=== PATIENT | female | born 1975 | race Caucasian/White ===

== ENCOUNTER 2016-12-18 11:30 | Inpatient (IN) | payer MEDICAID ==
[~2016-12-18] VITALS: Ht 162.6 cm; Wt 81.0 kg
[2017-04-02] VITALS (17 sets, daily range): BP systolic 112–138; BP diastolic 0–77; PULSE 68–92; RESP 16–26; Ht 162.6 cm; Wt 81.0 kg
[2017-04-02] MEDS ORDERED: LACTATED RINGER'S 1,000 ML IV SCH (14:00)
[2017-04-02] MEDS ORDERED: CEFAZOLIN 2 GM/50 ML (PMX) 50 ML IVPB ONE (14:00)
[2017-04-02] MEDS ORDERED: metroNIDAZOLE 500 MG/NS (PMX) 100 ML IVPB ONE (14:00)
[2017-04-02] MEDS ORDERED: FENTAnyl 50 MCG/ML VIAL IV PRN ×3 (15:00)
[2017-04-02] MEDS ORDERED: DIPHENHYDRAMINE 50 MG INJ IV PRN (15:00)
[2017-04-02] MEDS ORDERED: PROPOFOL 100 ML ONE (15:00)
[2017-04-02] MEDS ORDERED: MEPERIDINE 25 MG INJ IV PRN (15:00)
[2017-04-02] MEDS ORDERED: hydrALAzine 20 MG INJ IV PRN (15:00)
[2017-04-02] MEDS ORDERED: HYDROmorphONE (0.2 MG/ML) 10ML SYG IV PRN ×2 (15:00)
[2017-04-02] MEDS ORDERED: OXYCODONE/ACETAMINOPHEN (5/325) TAB PO PRN ×2 (15:00)
[2017-04-02] MEDS ORDERED: EPHEDrine SULFATE 50 MG/5 ML SYG IV PRN (15:00)
[2017-04-02] MEDS ORDERED: LABETALOL HCL 20MG INJ IV PRN (15:00)
[2017-04-02] MEDS ORDERED: ONDANSETRON 4 MG INJ IV PRN ×2 (15:00→19:30)
[2017-04-02] MEDS ORDERED: LIDOCAINE 2% (SDV) 5 ML INJ ONE (15:01)
[2017-04-02] MEDS ORDERED: ROCURONIUM 50 MG INJ ONE ×2 (15:02→17:09)
[2017-04-02] MEDS ORDERED: BUPIVACAINE 0.25%/EPI (SDV) 10 ML INJ ONE (15:02)
[2017-04-02] MEDS ORDERED: LIDOCAINE 1% (STERILE-PAK) 30 ML INJ ONE (15:02)
--- NOTE | 2017-04-02 15:11 | HPN ---
Date/Time of Note Date/Time of Note DATE: 04/02/17 TIME: 15:10 Interval H&P Admission Note Pt. seen H&P reviewed: No system changes COLONOSCOPY NOTED. ESPERANZA SORIANO MD Apr 02, 2017 15:11
[2017-04-02] MEDS ORDERED: LABETALOL HCL 20MG INJ ONE (15:49)
[2017-04-02] MEDS ORDERED: LIDOCAINE 1% (MPF) 10 ML INJ ONE (16:08)
[2017-04-02] MEDS ORDERED: ONDANSETRON 4 MG INJ ONE (18:40)
[2017-04-02] MEDS ORDERED: DEXAMETHASONE 4 MG/ML 1 ML INJ ONE (18:40)
[2017-04-02] MEDS ORDERED: GLYCOPYRROLATE 1 MG INJ ONE (19:01)
[2017-04-02] MEDS ORDERED: NEOSTIGMINE 3 MG/3 ML SYRINGE ONE (19:01)
[2017-04-02] MEDS ORDERED: KETOROLAC 30 MG INJ ONE (19:03)
[2017-04-02] MEDS: HYDROmorphONE (0.2 MG/ML) 10ML SYG IV PRN ×3 (19:26→20:03)
[2017-04-02] MEDS ORDERED: HYDROCODONE/APAP (5/325) TAB PO PRN (19:30)
[2017-04-02] MEDS ORDERED: CEFTRIAXONE 1 GM/50 ML (PMX) 50 ML IVPB SCH (20:00)
--- NOTE | 2017-04-02 20:07 | OPR ---
Date/Time of Note Date/Time of Note DATE: 04/02/17 TIME: 19:56 Operative Report Procedure Date: Apr 02, 2017 Anesthesia: general Procedure Description Preoperative Diagnosis: 1. Colostomy state 2. History of obstructing sigmoid 10 cm colon cancer with positive lymph nodes 3. BMI 31 Postoperative Diagnosis: 1. Colostomy state 2. History of obstructing sigmoid 10 cm colon cancer with positive lymph nodes 3. BMI 31 4. Left ovarian cystic lesion (probable corpus luteum at 5 cm) Operation Performed: 1. Laparoscopic colostomy reversal/takedown 2. Laparoscopic splenic mobilization 3. Laparoscopic low colo-distal rectal anastomosis 4. Laparoscopic partial left colectomy 5. Rigid sigmoidoscopy 6. Implantation of biologic over anastomosis to improve healing and decrease adhesions 7. Local anesthetic [place], [id number] 8. Laparoscopic bilateral transversus abdominis plane block Surgeon: ESPERANZA SORIANO MD Systems Test Analyst: Kajal Rabago NP Anesthesia: general + local + regional Anesthesiologist: Tristen Singh MD Estimated Blood Loss: 25 ml's Specimens: 1. Anastomotic rings 2. Distal colon/colostomy edge 3. Left ovarian cystic lesion wall Tubes/Drains: Quarter inch Crapo Complications: None Pt Condition Post Procedure: stable Disposition: PACU Indications 41-year-old female with history of 10 cm obstructing sigmoid cancer with positive lymph nodes requiring colostomy in December 2016. She is undergone treatments for her adenocarcinoma and had colonoscopy and rigid sigmoidoscopy by Dr Evans without any abnormal findings about a month ago. Patient is now here for colostomy reversal. Risks include but are not limited to bleeding, infection, abscess, seroma, leak , damage to intestines or any intra-abdominal/intrapelvic structures, hernia formation, chronic pain, need for re-operations or further surgeries, [place], stroke , PE, DVT, pneumonia, organ failures, or even . Procedure Description: Patient was brought into the operating room, placed supine on the operating table, SCDs were placed, right arm was tucked, all pressure points were well- padded, preoperative antibiotics administered, and after induction of anesthesia , patient was placed in the lithotomy. Espinal was inserted. Patient was then prepped and draped in usual sterile fashion, and timeout was performed. Incision was made in the right upper quadrant, and using an Optiview port and 5 mm 0 scope abdomen was safely entered and insufflated to 15 mmHg with CO2. Laparoscopy was performed and no injuries were identified. Under direct visualization another 5 mm port was placed in the right lower quadrant a 12 mm port was placed in the right lower lateral quadrant. Patient was placed in Trendelenburg and left side up. Pelvis was investigated. There was a left ovarian cystic lesion that was adherent to the rectal stump. The lesion was about 5 cm and chocolate type. Manipulation of this perforated the lesion and old blood was leaked out and suctioned out. Gynecological consultation by Dr. Lobato was obtained and he does not believe this to be concerning lesion. He does not recommend removing the lesion. There was complete hemostasis at this point and lesion was not bleeding. I decided to perform biopsy of the wall of the cyst to rule out any malignancy. Intraoperative consultation from pathology negated possibilities of malignancy. The lesion open cuadra were cauterized to maintain hemostasis. Rigid sigmoidoscopy was performed and the rectal stump was found to be short. There was few stool hard balls there which were removed manually. The vaginal cuff and the bladder were easily off of the rectal stump. The rectal stump did not feel thickened. The colostomy edge was cut away from the skin using electrocautery and with gentle dissection the distal colon was from the subcutaneous tissue and then the fascia and peritoneum circumferentially preserving the entire colon. Hemostasis was obtained. Automatic pursestring suture device was used on the healthy distal colon and then unhealthy distal colon was transected and sent to pathology. EEA 29 anvil was placed into the distal colon and secured with the previously placed pursestring suture. Care was taken to put back the EEA anvil and the distal colon back into the abdomen under direct visualization. Louis GelPort was applied at the site to preserve insufflation. At this point the proximal colon was not sufficiently reaching the rectal stump in the pelvis to allow tension free anastomosis. Decision was made to proceed with splenic mobilization. Using sharp dissection and energy device I was able to mobilize the proximal descending colon further from the abdominal wall and the spleen. The omentum was taken off the splenic flexure and the splenic flexure was further mobilized inferiorly. After full mobilization of the splenic flexure we were able to obtain sufficient length for the anastomosis without any tension. EEA stapler was placed through the rectum into the rectal stump under direct visualization. The needle was opened through the rectal stump and the anvil was attached to the needle and full circular stapled anastomosis was created. After removal of the EEA full doughnuts 2 were identified. Proximal colon was clamped and using a rigid sigmoidoscope and air was insufflated into the rectum with distention of the anastomotic site under saline in the pelvis without any air bubbles leaking. Rigid sigmoidoscopy was performed up to 15 cm with healthy stapled anastomosis without any active bleeding. Fluid was suctioned out. To reinforce the stapled anastomosis, improve healing, and decrease adhesions, 10 x 15 cm 3 layer ACell, xenograft biologic tissue, was implanted on top of the anastomosis in the pelvis. Small bowel was ran from terminal ileum to augment of Treitz without any twisting or further scarring. The bowel was laid flat in the abdomen and pelvis. 12 m port site fascia was closed with Endo Close and 0 Vicryl in a figure-of- eight manner. There was complete hemostasis. Ports and CO2 were removed under direct visualization. Wounds were thoroughly irrigated and skin was closed with 4-0 Monocryl subcuticular fashion. Dermabond was applied. The colostomy site wound was closed in multiple layers. Initially the peritoneum was closed with 2-0 Vicryl in a running fashion. Fascial defect was closed with interrupted #1 Vicryls in a [id number] manner. Subcutaneous tissue was closed in multiple layers with interrupted 2-0 Vicryl suture. There was irrigation with saline and Betadine between each closing layer. Quarter inch Gonzalo drain was placed above the fascia and below the subcutaneous tissue and the edges secured to the skin surface using 2-0 nylon. Skin was closed loosely with 2-0 nylon and then 4 x 4 and tape were applied to the surface of this wound. All counts were correct and the end of the operation 2. Patient was extubated and transferred to recovery room in stable condition. ESPERANZA SORIANO MD Apr 02, 2017 20:07
[2017-04-02] MEDS: D5W-0.45 NACL + KCL 20 MEQ 1,000 ML IV SCH (21:31)
[2017-04-02] MEDS: metroNIDAZOLE 500 MG/NS (PMX) 100 ML IVPB SCH (21:32)
[2017-04-02] MEDS: HYDROmorphONE 1 MG/ML SYG IV PRN (21:34)
[2017-04-03 02:24] VITALS: BP 113/62; PULSE 97; RESP 18
[2017-04-03] MEDS: HYDROmorphONE 1 MG/ML SYG IV PRN ×2 (02:29→05:56)
[2017-04-03] MEDS: metroNIDAZOLE 500 MG/NS (PMX) 100 ML IVPB SCH ×2 (03:23→11:45)
[2017-04-03 05:37] LABS: ABNORMAL IP MESSAGE 1; BASOPHILS % 0.1 % (0.0-2.0); HEMATOCRIT 34.8 % (37.0-47.0); HEMOGLOBIN 11.8 g/dl (12.0-16.0); LYMPHOCYTES # 0.6 10^3/ul (0.8-2.9); LYMPHOCYTES % 3.7 % (15.0-51.0); MEAN CORPUSCULAR HEMOGLOBIN 29.9 pg (29.0-33.0); MEAN CORPUSCULAR HGB CONC 33.9 g/dl (32.0-37.0); MEAN CORPUSCULAR VOLUME 88.3 fl (82.0-101.0); MEAN PLATELET VOLUME 9.5 fl (7.4-10.4); MONOCYTE # 0.4 10^3/ul (0.3-0.9); MONOCYTES % 2.9 % (0.0-11.0); NEUTROPHIL # 13.9 10^3/ul (1.6-7.5); NEUTROPHILS % 92.8 % (39.0-77.0); PLATELET COUNT 241 10^3/UL (140-415); RED BLOOD COUNT 3.94 10^6/ul (4.20-5.40); RED CELL DISTRIBUTION WIDTH 12.9 % (11.5-14.5); WHITE BLOOD COUNT 14.9 10^3/ul (4.8-10.8)
[2017-04-03 05:46] LABS: CALCIUM 7.9 mg/dl (8.4-10.2); CREATININE 0.64 mg/dl (0.44-1.00); POSITIVE DIFF @See below
[2017-04-03 06:10] LABS: IRON 35 ug/dl (35-150)
[2017-04-03] MEDS: PANTOPRAZOLE (EC) 40 MG TAB PO SCH (06:10)
[2017-04-03] MEDS: ENOXAPARIN 40 MG/0.4 ML SYG SC SCH (06:19)
[2017-04-03 06:20] LABS: TOTAL IRON BINDING CAPACITY 269 ug/dl (241-421)
--- NOTE | 2017-04-03 07:21 | HP ---
Date/Time of Note Date/Time of Note DATE: 04/03/17 TIME: 07:10 Assessment/Plan Lines/Catheters IV Catheter Type (from [facility]): Peripheral IV Urinary Cath still in place: Yes Assessment/Plan Assessment/Plan Assessment Patient is a 41-year-old female with history of obstructing sigmoid colon cancer s/p removal with colostomy state for over a year now admitted and underwent operations which included laparoscopic colostomy reversal/takedown. Plan Continue pain management. Follow-up surgery recommendations. We will check iron profile and ferritin to see if she has iron deficiency anemia. HPI/ROS Admit Date/Time Admit Date/Time Apr 02, 2017 at 13:26 Hx of Present Illness This is a 41-year-old female with a history of obstructing sigmoid 10 cm colon cancer with positive lymph nodes who in January of 2016 underwent surgical procedure to have that mass removed which included a laparoscopic sigmoid colectomy, laparoscopic colectomy with Eden's pouch, laparoscopic-guided transverse abdominis plane block. Patient now admitted to the hospital and underwent the following operations by Dr. Edgar Mc. Patient currently stated that her pain is 5 out of 10 in intensity. She wants to continue the current pain regimen because she has been feeling slightly confused when taking the pain medications. She denied any chest pain, shortness of breath, fever, chills, nausea or vomiting. Operation Performed: 1. Laparoscopic colostomy reversal/takedown 2. Laparoscopic splenic mobilization 3. Laparoscopic low colo-distal rectal anastomosis 4. Laparoscopic partial left colectomy 5. Rigid sigmoidoscopy 6. Implantation of biologic over anastomosis to improve healing and decrease adhesions 7. Local anesthetic injection, [id number] 8. Laparoscopic bilateral transversus abdominis plane block PMH/Family/Social Social History Smoking Status: Never smoker Exam/Review of Systems Vital Signs Vitals Vital Signs Date Time Temp Pulse Resp B/P Pulse Ox O2 Delivery O2 Flow Rate FiO2 04/03/17 02:24 98.2 97 18 113/62 96 Room Air Intake and Output 04/02/17 04/02/17 04/03/17 15:00 23:00 07:00 Intake Total 2100 ml 830 ml Output Total 476 ml 900 ml Balance 1624 ml -70 ml Exam Constitutional: alert, oriented, well developed Head: atraumatic, normocephalic Eyes: EOMI, PERRL Respiratory: clear to auscultation, normal air movement Cardiovascular: nl pulses, regular rate and rhythm Gastrointestinal: other (There is a swollen area on the left side of her abdomen where her colostomy used to be.), soft, surgical scars, tender Extremities: normal pulses Labs Result Diagram: 04/03/1742304/03/174 Medications Medications Current Medications Metronidazole (Flagyl 500 Mg (Pmx)) 100 ml @ 100 mls/hr Q8H IVPB Last administered on 04/03/17 03:23; Admin Dose 100 MLS/HR; Start 04/02/17 at 19:30; Stop 04/03/17 at 19:29 Ondansetron HCl (Zofran Inj) 4 mg Q6H PRN IV NAUSEA AND/OR VOMITING; Start 04/02 at 19:30 Pantoprazole 40 mg 40 mg DAILY@06 PO Last administered on 04/03/17 06:10; Admin Dose 40 MG; Start 04/03/17 at 06:00 Potassium Chloride/Dextrose/ Sod Cl (D5-1/2ns + KCl 20 Meq) 1,000 ml @ 80 mls/ hr [id number] IV Last administered on 04/02/17 21:31; Admin Dose 80 MLS/HR; Start 04/02/17 at 19:29 Enoxaparin Sodium (Lovenox) 40 mg DAILY@07 SC Last administered on 04/03/17 06: 19; Admin Dose 40 MG; Start 04/03/17 at 07:00 Acetaminophen/ Hydrocodone Bitart ([place] (5/325)) 2 tab Q4H PRN PO Pain 6-10; Start 04/02/17 at 19:30 Acetaminophen/ Hydrocodone Bitart ([place] (5/325)) 1 tab Q4H PRN PO Pain 1-5; Start 04/02/17 at 19:30 Hydromorphone HCl (Dilaudid) 0.5 mg Q2H PRN IV Breakthrough PAIN Last administered on 04/03/17 05:56; Admin Dose 0.5 MG; Start 04/02/17 at 19:30 CURLY LEWIS MD Apr 03, 2017 07:20
[2017-04-03] MEDS: D5W-0.45 NACL + KCL 20 MEQ 1,000 ML IV SCH ×2 (07:59→13:42)
[2017-04-03 08:06] VITALS: BP 106/58; RESP 20
[2017-04-03 09:45] LABS: ADD UMIC NO; UR ASCORBIC ACID NEGATIVE (NEGATIVE); UR BILIRUBIN (Dip) NEGATIVE (NEGATIVE); UR BLOOD (Dip) NEGATIVE (NEGATIVE); UR CLARITY CLEAR (CLEAR); UR COLOR YELLOW (YELLOW); UR GLUCOSE (Dip) 1+ mg/dL (NEGATIVE); UR KETONES (Dip) NEGATIVE (NEGATIVE); UR LEUKOCYTE ESTERASE (Dip) NEGATIVE Leu/ul (NEGATIVE); UR NITRITE (Dip) NEGATIVE (NEGATIVE); UR SPECIFIC GRAVITY (Dip) 1.023 (1.003-1.030); UR TOTAL PROTEIN (Dip) NEGATIVE (NEGATIVE); UR UROBILINOGEN (Dip) NEGATIVE (NEGATIVE)
[2017-04-03] MEDS: HYDROCODONE/APAP (5/325) TAB PO PRN ×2 (11:43→17:07)
[2017-04-03 11:53] VITALS: BP 104/59; PULSE 100; RESP 20
[2017-04-03 13:25] LABS: HEMATOCRIT 32.3 % (37.0-47.0); HEMOGLOBIN 10.8 g/dl (12.0-16.0)
[2017-04-03 14:00] VITALS: BP 111/51; RESP 18
[2017-04-03 18:01] LABS: HEMATOCRIT 29.4 % (37.0-47.0); HEMOGLOBIN 10.1 g/dl (12.0-16.0)
[2017-04-03 19:31] VITALS: BP 113/59; RESP 22
--- NOTE | 2017-04-03 21:38 | QN ---
Documentation Comment April I was called for an intraoperative consult This is a patient with history of sigmoid colon cancer with positive lymph node who previously had partial resection of sigmoid colon and anastomosis,was now having colo-rectal anastomosis and other palliative procedures. On laparoscopic observation the R ovary was lacerated and apparently a corpus luteum cyst was ruptured .No other concerning gynecological finding at this short laparoscopic viewing. A biopsy of this ovary was sent for frozen section ,no malignancy found. Operation Performed: by Dr: Alexandro: 1. Laparoscopic colostomy reversal/takedown 2. Laparoscopic splenic mobilization 3. Laparoscopic low colo-distal rectal anastomosis 4. Laparoscopic partial left colectomy 5. Rigid sigmoidoscopy 6. Implantation of biologic over anastomosis to improve healing and decrease adhesions 7. Local anesthetic injection, [id number] 8. Laparoscopic bilateral transversus abdominis plane block Mohinder Suarez HESHMAT MD Apr 03, 2017 21:38
--- NOTE | 2017-04-03 23:14 | PN ---
Date/Time of Note Date/Time of Note DATE: 04/03/17 TIME: 22:51 Assessment/Plan Lines/Catheters IV Catheter Type (from [facility]): Peripheral IV Espinal in Place (from [facility]): No Assessment/Plan Chief Complaint/Hosp Course 1. Colostomy state s/p colostomy reversal/takedown 04/02/17; +flatus -full liquids -advance as tolerated with bowel function -ambulate -IS 2. Normocytic anemia: no acute bleed noted; ?dilutional -monitor, frequent H/h 3. Leukocytosis with tachycardia: reactive vs. infective; afebrile -monitor 4. Abdominal pain: 10/04 #1 -ice pack -analgesics 5. Obesity: BMI 31 -weight and nutrition optimization Patient seen and examined in collaboration with Dr. Edgar Mc. Thank you. Problems: Subjective 24 Hr Interval Summary Feeling well. + flatus, no bm. Tolerating diet. incision site without bleeding or drainage. Min abdominal tenderness. No c/o pain, n/v/d, fevers, chills, sob, cough. Exam/Review of Systems Vital Signs Vitals Vital Signs Date Time Temp Pulse Resp B/P Pulse Ox O2 Delivery O2 Flow Rate FiO2 04/03/17 19:31 98.5 110 22 113/59 100 04/03/17 11:53 Room Air Intake and Output 04/02/17 04/02/17 04/03/17 15:00 23:00 07:00 Intake Total 2100 ml 830 ml Output Total 476 ml 900 ml Balance 1624 ml -70 ml Exam Constitutional: alert, oriented Psych: nl mood/affect Head: atraumatic, normocephalic Eyes: nl conjunctiva ENMT: mucosa pink and moist Neck: non-tender, supple Respiratory: normal air movement Cardiovascular: regular rate and rhythm Gastrointestinal: distended (min), other (previous ostomy site dry without erythema with sutures ; + ananth drain), soft, tender Genitourinary - Female: No CVA tenderness Musculoskeletal: nl extremities to inspection Extremities: normal pulses Neurological: nl mental status, nl speech Skin: nl turgor, No diaphoresis Results Result Diagram: 04/03/17 1753 04/03/17 0424 ALFREDO DIAMOND NP Apr 03, 2017 23:09
[2017-04-04] MEDS: HYDROCODONE/APAP (5/325) TAB PO PRN ×2 (02:06→10:33)
[2017-04-04] MEDS: D5W-0.45 NACL + KCL 20 MEQ 1,000 ML IV SCH (02:07)
[2017-04-04 03:18] VITALS: BP 109/59; RESP 20
[2017-04-04 05:32] LABS: BASOPHILS % 0.2 % (0.0-2.0); EOSINOPHILS % 0.2 % (0.0-7.0); HEMATOCRIT 28.3 % (37.0-47.0); HEMOGLOBIN 9.3 g/dl (12.0-16.0); LYMPHOCYTES # 0.9 10^3/ul (0.8-2.9); MEAN CORPUSCULAR HEMOGLOBIN 29.4 pg (29.0-33.0); MEAN CORPUSCULAR HGB CONC 32.9 g/dl (32.0-37.0); MEAN CORPUSCULAR VOLUME 89.6 fl (82.0-101.0); MEAN PLATELET VOLUME 9.5 fl (7.4-10.4); MONOCYTE # 0.3 10^3/ul (0.3-0.9); MONOCYTES % 3.4 % (0.0-11.0); NEUTROPHIL # 8.6 10^3/ul (1.6-7.5); NEUTROPHILS % 86.6 % (39.0-77.0); PLATELET COUNT 198 10^3/UL (140-415); RED BLOOD COUNT 3.16 10^6/ul (4.20-5.40); RED CELL DISTRIBUTION WIDTH 13.5 % (11.5-14.5); WHITE BLOOD COUNT 9.9 10^3/ul (4.8-10.8)
[2017-04-04 05:48] LABS: MAGNESIUM 1.7 mg/dl (1.7-2.5); PHOSPHORUS 2.2 mg/dl (2.5-4.9)
[2017-04-04] MEDS: PANTOPRAZOLE (EC) 40 MG TAB PO SCH (05:56)
[2017-04-04] MEDS: ENOXAPARIN 40 MG/0.4 ML SYG SC SCH (06:05)
[2017-04-04 06:48] LABS: ALBUMIN 2.8 g/dl (3.3-4.9); BILIRUBIN,INDIRECT 0.2 mg/dl (0-1.1); BILIRUBIN,TOTAL 0.2 mg/dl (0.2-1.3); CALCIUM 7.8 mg/dl (8.4-10.2); CREATININE 0.61 mg/dl (0.44-1.00); POTASSIUM 3.8 mmol/L (3.5-5.1); TOTAL PROTEIN 5.6 g/dl (6.1-8.1)
[2017-04-04 08:24] VITALS: BP 117/68; RESP 16
--- NOTE | 2017-04-04 09:29 | PN ---
Date/Time of Note Date/Time of Note DATE: 04/04/17 TIME: 09:14 Assessment/Plan Lines/Catheters IV Catheter Type (from [facility]): Peripheral IV Espinal in Place (from [facility]): No Assessment/Plan Chief Complaint/Hosp Course 1. Colostomy state s/p colostomy reversal/takedown 04/02/17; +flatus; tolerating full liquids -advance as tolerated with bowel function -ambulate -IS 2. Normocytic anemia: no acute bleed noted; ?dilutional -monitor -frequent H/h 3. Leukocytosis: normalized afebrile -monitor 4. Abdominal pain: 2 #1 -ice pack -analgesics 5. Obesity: BMI 31 -weight and nutrition optimization 6. Tachycardia: ?22 #4 vs. bleed -monitor -as above Patient seen and examined in collaboration with Dr. Edgar Mc. Thank you. Problems: Subjective 24 Hr Interval Summary Feels well. +flatus/no bm. tolerating full liquids. ambulating without difficulty. tachycardia. No fevers, chills, n/v/d, dysuria. Exam/Review of Systems Vital Signs Vitals Vital Signs Date Time Temp Pulse Resp B/P Pulse Ox O2 Delivery O2 Flow Rate FiO2 04/04/17 08:24 98.8 109 16 117/68 96 04/03/17 11:53 Room Air Intake and Output 04/03/17 04/03/17 04/04/17 15:00 23:00 07:00 Intake Total 580 ml 1360 ml 1750 ml Output Total 700 ml 1110 ml Balance 580 ml 660 ml 640 ml Exam Free Text/Dictation Constitutional: alert, oriented Psych: nl mood/affect Head: atraumatic, normocephalic Eyes: nl conjunctiva ENMT: mucosa pink and moist Neck: non-tender, supple Respiratory: normal air movement Cardiovascular: regular rate and rhythm Gastrointestinal: distended (min), other (previous ostomy site closed with sutures without erythema; + ananth drain), soft, tender Genitourinary - Female: No CVA tenderness Musculoskeletal: nl extremities to inspection Extremities: normal pulses Neurological: nl mental status, nl speech Skin: nl turgor, No diaphoresis Results Result Diagram: 04/04/17 0437 04/04/17 0437 ALFREDO DIAMOND NP Apr 04, 2017 09:25
[2017-04-04 11:39] LABS: HEMATOCRIT 30.3 % (37.0-47.0); HEMOGLOBIN 10.3 g/dl (12.0-16.0)
[2017-04-04 15:05] VITALS: BP 118/68; RESP 16
[2017-04-04] MEDS: KETOROLAC 30 MG INJ IV SCH ×2 (15:06→20:20)
[2017-04-04 20:19] VITALS: BP 128/61; RESP 20
[2017-04-05] MEDS: KETOROLAC 30 MG INJ IV SCH ×3 (03:00→15:00)
[2017-04-05 03:26] VITALS: BP 120/73; RESP 20
[2017-04-05] MEDS: PANTOPRAZOLE (EC) 40 MG TAB PO SCH (06:35)
[2017-04-05] MEDS: ENOXAPARIN 40 MG/0.4 ML SYG SC SCH (06:42)
[2017-04-05 07:00] VITALS: BP 119/70; RESP 20
--- NOTE | 2017-04-05 11:59 | PN ---
Date/Time of Note Date/Time of Note DATE: 04/05/17 TIME: 11:54 Assessment/Plan Lines/Catheters IV Catheter Type (from [facility]): Saline Lock Espinal in Place (from [facility]): No Assessment/Plan Chief Complaint/Hosp Course 1. Colostomy state s/p colostomy reversal/takedown 04/02/17; +bowel function; pathology noted, tolerating full liquids -advance as tolerated with bowel function -ambulate -IS 2. Normocytic anemia: no acute bleed noted: h/h improved, stable -monitor 3. Leukocytosis: normalized 4. Abdominal pain: 2/2 #1; much improved -ice pack -analgesics 5. Obesity: BMI 31 -weight and nutrition optimization 6. Tachycardia: checked rate apically- hr 84 Patient seen and examined in collaboration with Dr. Edgar Mc. Thank you. Problems: Subjective 24 Hr Interval Summary + bowel function, soft brown stool x2. No bleeding noted. Tolerating diet. No fevers, chills, n/v/d, cp, palpitations. Tachycardia improved. Exam/Review of Systems Vital Signs Vitals Vital Signs Date Time Temp Pulse Resp B/P Pulse Ox O2 Delivery O2 Flow Rate FiO2 04/05/17 07:00 98.3 103 20 119/70 97 04/03/17 11:53 Room Air Intake and Output 04/04/17 04/04/17 04/05/17 15:00 23:00 07:00 Intake Total 200 ml 1340 ml 350 ml Output Total 1650 ml 800 ml Balance 200 ml -310 ml -450 ml Exam Free Text/Dictation Constitutional: alert, oriented Psych: nl mood/affect Head: atraumatic, normocephalic Eyes: nl conjunctiva ENMT: mucosa pink and moist Neck: non-tender, supple Respiratory: normal air movement Cardiovascular: regular rate and rhythm Gastrointestinal: distended (min), other (previous ostomy site dry without erythema with sutures ; + ananth drain, min serosanguineous drainage, no periwound erythema), soft, tender Genitourinary - Female: No CVA tenderness Musculoskeletal: nl extremities to inspection Extremities: normal pulses Neurological: nl mental status, nl speech Skin: nl turgor, No diaphoresis Results Result Diagram: 04/04/17 1116 04/04/17 0437 ALFREDO DIAMOND NP Apr 05, 2017 11:59
[2017-04-05 14:00] VITALS: BP 121/65; RESP 20
[2017-04-05 17:10] VITALS: PULSE 94
[2017-04-05 20:40] VITALS: BP 110/61; RESP 20
[2017-04-06 02:35] VITALS: BP 113/62; RESP 18
[2017-04-06] MEDS: ENOXAPARIN 40 MG/0.4 ML SYG SC SCH (07:00)
[2017-04-06] MEDS: PANTOPRAZOLE (EC) 40 MG TAB PO SCH (07:05)
[2017-04-06 08:02] VITALS: BP 115/66; RESP 19
--- NOTE | 2017-04-06 21:05 | DS ---
Date/Time of Note Date/Time of Note DATE: 04/06/17 TIME: 21:02 Discharge Summary Admission/Discharge Info Admit Date/Time Apr 02, 2017 at 13:26 Discharge Date/Time Apr 06, 2017 at 16:51 Discharge Diagnosis Colon ca hx Colostomy state s/p colostomy takedown Patient Condition: Good Procedures s/p lap colostomy takedown, biologic implantation, rigid sigmoidoscopy Hx of Present Illness This is a 41-year-old female with a history of obstructing sigmoid 10 cm colon cancer with positive lymph nodes who in January of 2016 underwent surgical procedure to have that mass removed which included a laparoscopic sigmoid colectomy, laparoscopic colectomy with Eden's pouch, laparoscopic-guided transverse abdominis plane block. She underwent reversal procedure and did well postoperatively. Bowel function returned and she is tolerating diet. Labs are normal. She is ambulatory and ready to go home. Operation Performed: 1. Laparoscopic colostomy reversal/takedown 2. Laparoscopic splenic mobilization 3. Laparoscopic low colo-distal rectal anastomosis 4. Laparoscopic partial left colectomy 5. Rigid sigmoidoscopy 6. Implantation of biologic over anastomosis to improve healing and decrease adhesions 7. Local anesthetic [place], [id number] 8. Laparoscopic bilateral transversus abdominis plane block Hospital Course 1. Colostomy state s/p colostomy reversal/takedown 04/02/17; +bowel function; pathology noted, tolerating diet -dc planning -ambulate -IS 2. Normocytic anemia: no acute bleed noted: h/h improved, stable 3. Leukocytosis: normalized 4. Abdominal pain: 2/2 #1; much improved -ice pack -analgesics 5. Obesity: BMI 31 -weight and nutrition optimization 6. Tachycardia: resolved Home Meds Reported Medications [None] No Conflict Check 02/14/17 Follow-up Plan Surgeon 1 week Primary Care Provider Care Physician No Primary Time spent on discharge: > 30 minutes ESPERANZA SORIANO MD Apr 06, 2017 21:05
== END 2017-04-06 16:51 | disposition home or self-care (01) | DRG 331 ==
LOC: REC 04-02 13:26 → MS1 04-02 20:30
PROVIDERS: ADMIT Surgery; ATTEND Surgery
PROC: 0UB14ZX Excision of Left Ovary, Percutaneous Endoscopic Approach, Diagnostic (ICD-10-PCS; 2017-04-02)
PROC: 0DBM4ZZ Excision of Descending Colon, Percutaneous Endoscopic Approach (ICD-10-PCS; principal; 2017-04-02 15:00)
DX: Z43.3 Encounter for attention to colostomy (principal); E66.9 Obesity, unspecified; Z85.038 Personal history of other malignant neoplasm of large intestine; D64.9 Anemia, unspecified; Z68.31 Body mass index [BMI] 31.0-31.9, adult; R00.0 Tachycardia, unspecified; N83.202 Unspecified ovarian cyst, left side
CPT/HCPCS: 80048; 80053; 81003; 82728; 83540; 83735; 84100; 85014; 85018; 85025; 87086; 88307; 88331; J0696; J1100; J1170; J1650; J1885; J2405; J2710; J3010; J3480; Q4166

== ENCOUNTER 2017-02-14 06:25 | Day surgery (SDC) | payer OTHER ==
[~2017-02-14] VITALS: Ht 157.5 cm; Wt 82.8 kg
[~2017-02-14 06:25] MED LIST: FER325 PO; HYDR-3498 PO
[2017-02-14 06:55] VITALS: Ht 157.5 cm; Wt 82.8 kg
[2017-02-14 07:19] VITALS: BP 119/64; PULSE 74; RESP 18
[2017-02-14] MEDS ORDERED: LIDOCAINE 2% (SDV) 5 ML INJ ONE (07:25)
[2017-02-14] MEDS ORDERED: PROPOFOL 40 ML ONE (07:25)
[2017-02-14 08:36] VITALS: BP 113/63; PULSE 66; RESP 12
--- NOTE | 2017-02-14 11:42 | GILP ---
DATE OF PROCEDURE: NAME OF PROCEDURE: 1. Colonoscopy to colostomy. 2. Sigmoidoscopy through the rectum. INDICATION FOR THE PROCEDURE: Ms. Jennifer Rivera is a 41-year-old female patient who had surgery for colon cancer. She had a colostomy. The patient was scheduled for screening colonoscopy before r evision of the colostomy. The procedure and possible complications were well explained to the patient and the family and conse nt was obtained. DESCRIPTION OF PROCEDURE: Under the influence of anesthesia, the colonoscope was carefully introduc ed through the colostomy and it was advanced all the way to the cecum. FINDINGS: The patient had normal colonic mucosa. There was no colon neoplasm identified. The colonoscope was introduced into the rectum through the anus and it was advanced to the end of th e sigmoid pouch. Patient has some residual stool in the sigmoid pouch. She was noted to have hemor rhoids. No gross neoplasm was identified. She tolerated the procedure very well and there was no complication from the procedure. At the end of the procedure, she was awake with stable vital signs and she was discharged home to the care of h er family. IMPRESSION: 1. Colonoscopy through colostomy to the cecum. 2. No colon neoplasm was identified. 3. Sigmoidoscopy through the anus to the end of the sigmoid pouch. 4. Residual stool in the sigmoid pouch. 5. Internal hemorrhoids. 6. No gross neoplasm was identified. PLAN: 1. May go ahead with revision of the colostomy. 2. Next screening colonoscopy in 5 years. Dictated By: AMANDA SHUKLA/VAL Conf#: [id number] DID#: [id number]
== END 2017-02-14 09:25 | disposition home or self-care (01) ==
LOC: GIL 06:25
PROVIDERS: ATTEND Internal Medicine Gastroenterology
DX: Z12.11 Encounter for screening for malignant neoplasm of colon (principal); Z85.038 Personal history of other malignant neoplasm of large intestine
CPT/HCPCS: 84703